=== PATIENT | female | born 1980 | race Two or more races ===

== ENCOUNTER 2019-04-06 14:15 | Emergency (ER) | payer MEDICAID ==
[~2019-04-06] VITALS: Ht 149.9 cm; Wt 54.0 kg
[2019-04-06 14:31] VITALS: BP 111/60
--- NOTE | 2019-04-06 14:35 | NUR ---
ED Nurse Note: pt walked in c/o abd pain . urine sent to lab awaiting junior tamez.
[2019-04-06 15:24] LABS: APPEARANCE,URINE CLEAR; BILIRUBIN, URINE NEGATIVE (NEGATIVE); COLOR,URINE PALE YELLOW; GLUCOSE, URINE (UA) NEGATIVE (NEGATIVE); KETONES,URINE NEGATIVE (NEGATIVE); LEUKOCYTE ESTERASE ,URINE 3+ (NEGATIVE); NITRITE,URINE NEGATIVE (NEGATIVE); PH,URINE 6.5 (4.5-8.0); PROTEIN,URINE NEGATIVE (NEGATIVE); UROBILINOGEN,URINE NORMAL MG/DL (0.0-1.0)
--- NOTE | 2019-04-06 15:25 | NUR ---
HAND-OFF: Report given to Prasad BASSETT.
--- NOTE | 2019-04-06 15:30 | NUR ---
ED Nurse Note: received report from SERJIO Rose, patient is complaining of right lower quadrant abdominal pain that she states has been an on going issue for 1 week now. denies any diarrhea or vomiting, rates her pain a 7/10 pain. IV started on left AC 20 gauge, blood sent down to lab, will wait for further orders
[2019-04-06 15:33] LABS: BASOPHILS % (AUTO) 0.9 % (0.0-2.0); EOSINOPHILS % (AUTO) 1.9 % (0.0-3.0); HEMATOCRIT 37.6 % (37.0-47.0); HEMOGLOBIN 13.1 G/DL (12.0-16.0); LYMPHOCYTES % (AUTO) 31.8 % (20.0-45.0); MEAN CORPUSCULAR VOLUME 89 FL (80-99); MONOCYTES % (AUTO) 7.3 % (1.0-10.0); NEUTROPHILS % (AUTO) 58.2 % (45.0-75.0); PLATELET COUNT 267 K/UL (150-450); RED BLOOD COUNT 4.24 M/UL (4.20-5.40); RED CELL DISTRIBUTION WIDTH 11.5 % (11.6-14.8); WHITE BLOOD COUNT 6.6 K/UL (4.8-10.8)
[2019-04-06 15:48] LABS: ANION GAP 9 mmol/L (5-15); BLOOD UREA NITROGEN 15 mg/dL (7-18); CALCIUM 9.1 MG/DL (8.5-10.1); CARBON DIOXIDE 29 MMOL/L (21-32); CHLORIDE 102 MMOL/L (98-107); CREATININE 0.8 MG/DL (0.55-1.30); POTASSIUM 3.5 MMOL/L (3.5-5.1); SODIUM 139 MMOL/L (136-145)
[2019-04-06 15:53] LABS: ALANINE AMINOTRANSFERASE 22 U/L (12-78); ALBUMIN 3.8 G/DL (3.4-5.0); ALBUMIN/GLOBULIN RATIO 0.9 (1.0-2.7); ALKALINE PHOSPHATASE 92 U/L (46-116); ASPARTATE AMINO TRANSFERASE 14 U/L (15-37); BILIRUBIN,TOTAL 0.2 MG/DL (0.2-1.0)
--- NOTE | 2019-04-06 15:55 | Emergency Room Report ---
History of Present Illness General Chief Complaint: Abdominal Pain Source: Patient Present Illness HPI 38-year-old female with no significant past medical history here complaining of right-sided abdominal pain x3 days. Patient reporting the pain starts on the right middle abdomen radiating to right upper quadrant rating the pain 5 out of 10 and intermittent and worsened when laying down. Patient also complains of frequency of urination however denies dysuria and hematuria. Denies fever chills, nausea vomiting, diarrhea. Denies recent travel, or sick contact. Patient last menstrual period was 2 weeks ago however she did do a test at home and it was negative. denies Chest pain, S OB, palpitation, and all other associated symptoms Allergies: Coded Allergies: AVOCADO (Verified Allergy, Unknown, 04/06/19) Patient History Past Medical History: see triage record Past Surgical History: unable to obtain Pertinent Family History: none Last Menstrual Period: March 2019 Now: No Reviewed Nursing Documentation: PMH: Agreed; PSxH: Agreed Nursing Documentation-PMH Past Medical History: No History, Except For Hx Cardiac Problems: No - FINGER SURGERY 2010 Review of Systems All Other Systems: negative except mentioned in HPI Physical Exam Vital Signs Date Time Temp Pulse Resp B/P (MAP) Pulse Ox O2 Delivery O2 Flow Rate FiO2 04/06/19 14:19 99.1 83 16 111/60 (77) 96 Room Air Sp02 EP Interpretation: reviewed, normal General Appearance: normal inspection, well appearing, no apparent distress Head: normocephalic, atraumatic Eyes: bilateral eye normal inspection, bilateral eye PERRL ENT: normal ENT inspection, hearing grossly normal Neck: normal inspection, full range of motion, supple, thyroid normal Respiratory: normal inspection, chest non-tender, lungs clear, normal breath sounds, no wheezing Cardiovascular #1: normal inspection, normal peripheral pulses, regular rate, rhythm, no gallop, no murmur Gastrointestinal: normal inspection, non tender, soft, no mass, no guarding, no pulsatile mass Genitourinary: no CVA tenderness Musculoskeletal: normal inspection, back normal Neurologic: normal inspection, alert, oriented x3, responsive Psychiatric: normal inspection, judgement/insight normal Skin: normal inspection, normal color, no rash Lymphatic: normal inspection, no adenopathy Medical Decision Making PA Attestation All diagnoses and treatment plans were reviewed and discussed with my supervising physician Dr. peck Diagnostic Impression: Primary Impression: UTI (urinary tract infection) ER Course 38-year-old female with no significant past medical history here complaining of right-sided abdominal pain x3 days. Patient reporting the pain starts on the right middle abdomen radiating to right upper quadrant rating the pain 5 out of 10 and intermittent and worsened when laying down. Patient also complains of frequency of urination however denies dysuria and hematuria. Denies fever chills, nausea vomiting, diarrhea. Denies recent travel, or sick contact. Patient last menstrual period was 2 weeks ago however she did do a test at home and it was negative. denies Chest pain, S OB, palpitation, and all other associated symptoms Ddx considered but are not limited to UTI, pyelonephritis, appendicitis Vital signs: are WNL, pt. is afebrile H&PE are most consistent with UTI ORDERS: UA, urine test, CBC, CMP, Macrobid ED INTERVENTIONS: None required at this time. DISCHARGE: At this time pt. is stable for d/c to home. Will provide printed patient care instructions, and any necessary prescriptions. Care plan and follow up instructions have been discussed with the patient prior to discharge. positive leuk Urine Last Vital Signs Date Time Temp Pulse Resp B/P (MAP) Pulse Ox O2 Delivery O2 Flow Rate FiO2 04/06/19 14:31 83 16 04/06/19 14:31 99.1 111/60 96 Room Air Disposition: HOME, SELF-CARE Condition: Stable Scripts Nitrofurantoin Monohyd/M-Cryst* (MACROBID 100 MG*) 100 Mg Capsule 100 MG ORAL EVERY 12 HOURS for 7 Days, #14 CAP Prov: Chetna Pham 04/06/19 Patient Instructions: Urinary Tract Infection, [id number] Additional Instructions: Follow-up with your primary care provider if your pain continues take medication as directed Chetna Pham Apr 06, 2019 15:55
[2019-04-06] MEDS ORDERED: NITROFURANTOIN100 M2 ORAL (15:56)
[2019-04-06 16:05] VITALS: BP 111/60
--- NOTE | 2019-04-06 16:05 | NUR ---
ER DISCHARGE NOTE: Patient is cleared to be discharged per ERMD, pt is aox4, on room air, with stable vital signs. pt was given dc and prescription instructions, pt was able to verbalize understanding, pt id band and iv site removed without complications. pt is able to ambulate with steady gait. pt took all belongings.
== END 2019-04-06 16:05 | disposition home or self-care (01) ==
LOC: EMR 15:00
DX: N39.0 Urinary tract infection, site not specified (principal); Z91.018 Allergy to other foods
CPT/HCPCS: 36415; 80053; 81001; 81025; 85025; 99283